=== PATIENT | male | born 1995 | race African-American/Black ===

== ENCOUNTER 2019-04-11 02:31 | Emergency (ER) | payer SELFPAY ==
[2019-04-11] MEDS ORDERED: Dexamethasone 10 MG/ML VIAL ONE (02:57)
== END 2019-04-11 03:24 | disposition home or self-care (01) ==
LOC: ERS 02:31
DX: J02.9 Acute pharyngitis, unspecified (principal); F17.210 Nicotine dependence, cigarettes, uncomplicated; Z71.6 Tobacco abuse counseling
CPT/HCPCS: 87081; 87430; 99406; J1100

== ENCOUNTER 2019-06-13 | Emergency (ER) | payer SELFPAY | END 2019-06-13 00:50 | disposition home or self-care (01) | LOC: ERS | DX: R51 Headache (principal); F17.210 Nicotine dependence, cigarettes, uncomplicated | CPT/HCPCS: 99283 ==